=== PATIENT | male | born 1940 | race Caucasian/White ===

== ENCOUNTER 2017-10-29 11:50 | Outpatient (CLI) | payer MEDICARE ==
[2017-10-29 12:15] LABS: ALT (SGPT) 10 U/L (8-55); AST (SGOT) 17 U/L (5-34); Albumin 3.5 g/dL (3.4-4.8); Alkaline Phosphatase 75 U/L (40-150); Bilirubin, Direct 0.1 mg/dL (0.1-0.3); Bilirubin, Total 0.3 mg/dL (0.2-1.2); Cardiac Risk 4.4 (Less than 4.5); Cholesterol 155 mg/dl (< 200 Desired); Globulin 2.2 g/dL (2.4-3.5); HDL Cholesterol 35 mg/dL (>60 Neg Risk); LDL Cholesterol, Calculated 99 mg/dL; Protein, Total 5.7 g/dL (5.8-8.1); Triglycerides 107 mg/dL (Less than 150)
[2017-10-29 12:23] LABS: Anion Gap 15 mmol/L (10-20); BUN (Urea Nitrogen) 12 mg/dL (8.4-25.7); Calc. Creatinine Clearance 0 mL/min (70-130); Calcium 9.2 mg/dL (7.8-10.44); Carbon Dioxide 23 mmol/L (23-31); Chloride 103 mmol/L (98-107); Estimated GFR-MDRD 72; Glucose 92 mg/dL (83-110); Sodium 137 mmol/L (136-145)
[2017-10-29 12:26] LABS: #Basophils 0.1 thou/uL (0.0-0.2); #Eosinphils 0.3 thou/uL (0.0-0.7); #Monocytes 0.8 thou/uL (0.11-0.59); #Neutrophils 5.2 thou/uL (1.40-6.50); %Eosinophils 3.2 % (0.0-10.0); %Lymphocytes 24.5 % (21.0-51.0); %Monocytes 9.1 % (0.0-10.0); %Neutrophils 62.3 % (42.0-75.0); Hemoglobin 11.6 g/dL (14.0-18.0); Mean Corpuscular HGB CONC 32.3 g/dL (32.0-36.0); Mean Platelet Volume 7.3 fL (7.4-10.4); Platelet Count 265 thou/uL (130-400); RBC Distribution Width 12.7 % (11.5-14.5); Red Blood Cell (RBC) Count 3.73 mill/uL (4.70-6.10); White Blood Cell (WBC) Count 8.3 thou/uL (4.8-10.8)
[2017-10-29 17:37] LABS: Hemoglobin A1c 5.8 % (4.0-6.0)
== END 2017-10-29 11:51 | disposition home or self-care (01) ==
LOC: NAV LAB 11:50
PROVIDERS: ATTEND Family Medicine
DX: N17.9 Acute kidney failure, unspecified (principal); G93.41 Metabolic encephalopathy; E87.1 Hypo-osmolality and hyponatremia; I10 Essential (primary) hypertension; Z79.899 Other long term (current) drug therapy
CPT/HCPCS: 80053; 80061; 82248; 83036; 84443; 85025

== ENCOUNTER 2017-11-19 06:27 | Emergency (ER) | payer MEDICARE, BC ==
--- NOTE | 2017-11-19 07:48 | CT ---
HEAD CT WITHOUT CONTRAST: Date: 11-19-17 Comparison: None. History: Fall, trauma, pain. Technique: Serial axial CT imaging at 5 mm intervals from vertex through skull base without contrast. Coronal and sagittal reformatted imaging obtained. FINDINGS: Imaged paranasal sinuses/mastoid air cells are well aerated. There is no displaced calvarial fracture . Endy cisterna magna noted. Mild diffuse cerebral volume loss. Mild periventricular hypodensity sugg ests small vessel disease. No intracranial hemorrhage, midline shift or mass effect. IMPRESSION: No intracranial hemorrhage or displaced calvarial fracture. POS: [facility]
--- NOTE | 2017-11-19 08:09 | CT ---
CERVICAL SPINE CT NONCONTRAST: Indication: Fall with neck pain. FINDINGS: There is prominent multilevel degenerative change of the cervical spine without fracture or significa nt subluxation. Imaged upper lung zones are clear. Vascular calcifications seen. IMPRESSION: 1. No acute cervical spine fracture. 2. 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 POS: [facility]
== END 2017-11-19 08:20 | disposition home or self-care (01) ==
LOC: NAV ERS 06:27
DX: S16.1XXA Strain of muscle, fascia and tendon at neck level, initial encounter (principal); S00.03XA Contusion of scalp, initial encounter; I10 Essential (primary) hypertension; E78.5 Hyperlipidemia, unspecified; F41.9 Anxiety disorder, unspecified; F32.9 Major depressive disorder, single episode, unspecified; Z79.899 Other long term (current) drug therapy; W18.30XA Fall on same level, unspecified, initial encounter
CPT/HCPCS: 70450; 72125

== ENCOUNTER 2018-02-17 09:51 | Emergency (ER) | payer MEDICARE, MEDICAID | END 2018-02-17 11:12 | disposition home or self-care (01) | LOC: NAV ERS 09:51 | DX: I10 Essential (primary) hypertension (principal); K40.90 Unilateral inguinal hernia, without obstruction or gangrene, not specified as recurrent; E78.5 Hyperlipidemia, unspecified; F41.9 Anxiety disorder, unspecified; F32.9 Major depressive disorder, single episode, unspecified; F10.10 Alcohol abuse, uncomplicated; Z79.899 Other long term (current) drug therapy | CPT/HCPCS: 99284 ==

== ENCOUNTER 2022-12-14 14:27 | Emergency (ER) | payer MEDICARE, MEDICAID ==
[2022-12-14] MEDS ORDERED: Boostrix 0.5 ML (Tdap) VIAL (>/=7 yrs of age) ONE (14:49)
[2022-12-14] MEDS ORDERED: HYDROcodone/Acetaminophen 10/325 mg Tablet ONE (14:49)
== END 2022-12-14 18:20 ==
LOC: NAV ERS 14:27
DX: S00.03XA Contusion of scalp, initial encounter (principal); S51.012A Laceration without foreign body of left elbow, initial encounter; R55 Syncope and collapse; E78.5 Hyperlipidemia, unspecified; I10 Essential (primary) hypertension; W19.XXXA Unspecified fall, initial encounter; Z23 Encounter for immunization
CPT/HCPCS: 70450; 72125; 90471; 90715

== ENCOUNTER 2023-06-07 22:11 | Emergency (ER) | payer MEDICARE, MEDICAID ==
[2023-06-07] MEDS ORDERED: Lidocaine 1% w/Epinephrine 1:100K 20 ML VIAL ONE (22:25)
[2023-06-07] MEDS ORDERED: Bacitracin 1 PK ONE (23:05)
== END 2023-06-08 01:20 ==
LOC: NAV ERS 22:11
DX: S01.01XA Laceration without foreign body of scalp, initial encounter (principal); E78.5 Hyperlipidemia, unspecified; I10 Essential (primary) hypertension; W18.30XA Fall on same level, unspecified, initial encounter; Z79.01 Long term (current) use of anticoagulants; Z79.899 Other long term (current) drug therapy
CPT/HCPCS: 12001; 70450

== ENCOUNTER 2024-07-19 07:04 | Emergency (ER) | payer MEDICARE, MEDICAID ==
[2024-07-19] MEDS ORDERED: Bacitracin 1 PK ONE (08:18)
== END 2024-07-19 09:50 ==
LOC: NAV ERS 07:04
DX: S01.01XA Laceration without foreign body of scalp, initial encounter (principal); I10 Essential (primary) hypertension; E78.5 Hyperlipidemia, unspecified; Z79.899 Other long term (current) drug therapy; W19.XXXA Unspecified fall, initial encounter
CPT/HCPCS: 12002; 70450